=== PATIENT | male | born 1990 | race Caucasian/White ===

== ENCOUNTER 2020-12-10 17:05 | Emergency (ER) | payer MEDICAID ==
[~2020-12-10] VITALS: Ht 177.8 cm; Wt 81.6 kg
[2020-12-10 17:32] VITALS: BP 114/70
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
--- NOTE | 2020-12-10 18:05 | NUR ---
PT BACK FROM [facility], PT IN CHAIR A
[2020-12-10] MEDS ORDERED: IBUP-2213 PO (18:44)
[2020-12-10] MEDS ORDERED: BACI1PAC6 TP (18:44)
--- NOTE | 2020-12-10 19:14 | NUR ---
Patient discharged with v/s stable. Written and verbal after care instructions given and explained. Patient alert, oriented and verbalized understanding of instructions. Ambulatory with steady gait. All questions addressed prior to discharge. ID band removed. Patient advised to follow up with PMD. Rx of bacitracin and ibuprofen given. Patient educated on indication of medication including possible reaction and side effects. Opportunity to ask questions provided and answered.
[2020-12-10 19:15] VITALS: BP 113/68
== END 2020-12-10 19:14 | disposition home or self-care (01) ==
LOC: MED 17:05
DX: S00.33XA Contusion of nose, initial encounter (principal); Z79.899 Other long term (current) drug therapy; W22.8XXA Striking against or struck by other objects, initial encounter; Y93.89 Activity, other specified; Y92.098 Other place in other non-institutional residence as the place of occurrence of the external cause; Y99.8 Other external cause status
CPT/HCPCS: 70160; 90471; 90715; 99283